=== PATIENT | female | born 1970 | race Caucasian/White ===

== ENCOUNTER 2017-01-30 13:30 | Emergency (ER) | payer MEDICARE, MEDICAID ==
[~2017-01-30 13:30] MED LIST: BUPR150T8 PO; FLUO20CA25 PO; LORA-303 PO
[2017-01-30 13:35] VITALS: BP 112/77; PULSE 87; RESP 16; O2SAT 98
--- NOTE | 2017-01-30 14:34 | ED.REPORT ---
HPI-Abd Pain F 40 and Over Date of Service January 30, 2017 ED Provider: Ferny Armenta MD Patient is a 46 year old female with a previous tubal ligation who presents to the ED complaining of post menopausal vaginal bleeding that began earlier this evening. Her last menstrual cycle was over 1.5 years ago. She describes spotting without flow and expressed concern as she has not experienced a period for the past year. Patient also reports intermittent episodes of diarrhea without hematochezia. Patient denies any pain, fever, vomiting, changes in urinary frequency. Nursing Notes Stated Complaint: VAGINAL BLEEDING Chief Complaint: Female Abdominal Pain Nursing Notes Reviewed: Yes Allergies: Coded Allergies: No Known Allergies (Verified Allergy, Unknown, 11/10/15) Scheduled Bupropion ER (Wellbutrin SR) 150 Mg Tablet.er 150 MG PO BIDWM Fluoxetine (Fluoxetine) 20 Mg Capsule 20 MG PO DAILY Scheduled PRN Lorazepam (Ativan) 1 Mg Tablet 1 MG PO Q4H PRN PRN SEE INSTRUCTIONS General Time Seen by MD: 14:31 Chief Complaint Vaginal bleeding Hx Obtained From: Patient Arrived By: Walk-in Sudden in Onset?: No Onset Occurred: 1 - 4 hours ago Symptom Duration: Since onset Progression since Onset: Gradually improving Associated with: Reports: Vaginal bleeding Pertinent Negative: Pt denies other symptoms Recent Healthcare: No recent doctor visit, No recent hospitalization Risk Factors )( AAA Risk Stratification Risk factors reviewed Past Medical History Past Medical History Notes: Has history of psychiatric detainment. (multiple) Past Medical History Per old reports: Herpes Schizophrenia/schizoaffective disorder Polysubstance abuse Past Surgical History Reports: Cholecystectomy Reports: Tubal ligation Smoking History Current Every Day Smoker Social History uses drugs and alcohol "off and on" per old reports. Drug Use: Cocaine, Meth Other Social History: Poor social support, Homeless Ambulatory Status Independent Review of Systems Constitutional: Denies: Chills, Fever Respiratory: Denies: Shortness of breath GI: Reports: Diarrhea, Denies: Nausea, Vomiting Female: Reports: Vaginal bleeding - abnl Complete sys rev & neg: except as marked. Physical Exam Vital Signs Vital Signs (First) Date Time Temp Pulse Resp B/P Pulse Ox O2 Delivery O2 Flow Rate FiO2 01/30/17 13:35 36.4 87 16 112/77 98 Room Air Initial VS: Reviewed Neck: Supple, Non-tender, Full range of motion Extremities: Vascular intact, Neuro intact, No swelling, No tenderness Neurologic: Alert, Oriented, Nonfocal Psychiatric: Mood/affect normal, Behavior normal, Normal thought content General/Constitutional: Awake, Alert, No acute distress, Well appearing, Well developed Respiratory / Chest: Atraumatic, Breath sounds NL, Breath sounds = bilat, No respiratory distress Cardiovascular: Heart rate NL, Regular rhythm, Heart sounds NL Abdomen: Atraumatic, Soft, Non-tender Back: Atraumatic, Inspection NL Head / Eyes: Atraumatic, Normocephalic, PERRL, No scleral icterus Skin: Atraumatic, Color NL (No pallor), No rash, Warm, Dry Re-Eval/Medical Decision Re-Evaluation/Progress : Time of Eval: 15:00 Patient Status: Condition improved Re-Evaluation/Progress Note: She is offerred lab work and further eval but declines at this time. Counseled Regarding: Diagnosis, Need for follow-up, When/why to return to ED Discharge & Departure Primary Impression: Postmenopausal bleeding Disposition: Home Discharge Condition All VS Reviewed: Yes Condition: Improved Patient Instructions: Postmenopausal Bleeding (GEN) Additional Instructions: Thank you for trusting us with your care this morning. Your emergency department evaluation today is reassuring that there is no immediate, dangerous cause for concern at this time, however a clear cause of your symptoms was not identified. I recommend that you schedule a follow up appointment with a gynecological specialist or primary care provider to have and endometrial biopsy to identify the cause of your symptoms. Schedule a follow up appointment with your primary care physician in the next 3- 4 days for a recheck. Please return to the emergency department if you develop any new or worsening symptoms including any fever, chills, vomiting, pain or worsening vaginal bleeding. Referrals: NOPCP (PCP) Pee Maguire MD Attestation Portions of this note were transcribed by Aby Jennings. I, Dr. Armenta personally performed the history, physical exam and medical decision-making; I reviewed and confirmed the accuracy of the information in the transcribed note. Signed by: Ade Cherry, 01/30/17 [id number]. Ferny Armenta MD January 30, 2017 14:34 ABY JENNINGS January 30, 2017 14:35
[2017-01-30 15:09] VITALS: BP 107/51; PULSE 74; RESP 18; O2SAT 97
[2017-01-30 15:10] VITALS: BP 107/51; PULSE 74; RESP 18; O2SAT 97
== END 2017-01-30 15:11 | disposition home or self-care (01) ==
LOC: SED 13:30
DX: N95.0 Postmenopausal bleeding (principal); F14.10 Cocaine abuse, uncomplicated; F15.10 Other stimulant abuse, uncomplicated; F17.210 Nicotine dependence, cigarettes, uncomplicated; Z98.51 Tubal ligation status